=== PATIENT | female | born 1960 | race Caucasian/White ===

== ENCOUNTER 2016-08-05 10:28 | Emergency (ER) | payer OTHER, MEDICAID ==
[2016-08-05 10:42] VITALS: RESP 18
--- NOTE | 2016-08-05 10:49 | EDPHY ---
H & P Time Seen by Provider: 08/05/16 10:34 HPI/ROS: CHIEF COMPLAINT: Rash to hands HPI: The patient is a 55-year-old female who complains of irritated skin and rash to the dorsal aspect of both hands for several months. 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 She denies rash or other parts of her body. She has tried no medications for relief. She denies fever or chills. REVIEW OF SYSTEMS: Aside from elements discussed in the HPI, a comprehensive 10-point review of systems was reviewed and is negative. PMH: Psychiatric illness. SOCIAL HISTORY: Smoker. PHYSICAL EXAM: General:Patient is alert, in no acute distress. Skin: Scaly examine his rash is present to the dorsum of both hands. There is no evidence of cellulitis or discharge. Remainder of skin is normal. Extremities: Normal appearance. Full range of motion. Neuro: Oriented x3. Normal motor function. Normal sensory function. Odd affect. Smoking Status: Current every day smoker Constitutional: Initial Vital Signs Temperature (C) 36.6 C 08/05/16 10:41 Heart Rate 75 08/05/16 10:41 Respiratory Rate 18 08/05/16 10:41 Blood Pressure 155/62 H 08/05/16 10:41 O2 Sat (%) 97 08/05/16 10:41 O2 Delivery Mode Room Air Allergies/Adverse Reactions: ziprasidone HCl [From Geodon] Allergy (Severe, Verified 05/19/14 11:50) ziprasidone mesylate [From Geodon] Allergy (Severe, Verified 05/19/14 11:50) Sulfa (Sulfonamide Antibiotics) Allergy (Intermediate, Verified 05/19/14 11:50) Home Medications: Medication Instructions Recorded Topiramate [Topamax 25MG (RX)] 50 mg PO DAILY 05/18/12 Clonidine 05/19/14 Naltrexone HCl 05/19/14 TRIFLUOPERAZINE HCL 05/19/14 Betamethasone Dipropionate 1 jac TP BID 28 Days 08/05/16 MDM/Departure - [facility] ED Course/Re-evaluation: This patient presents with either contact dermatitis or more likely eczema. I have prescribed a steroid cream and advised her to return if symptoms do not improve. I see no sign of acute systemic illness. - Depart Disposition: Home, Routine, Self-Care Clinical Impression: Eczema Condition: Good Instructions: Contact Dermatitis (ED), Eczema (ED) Additional Instructions: Use steroid cream as prescribed. If you cannot find this medication, you can try using [id number] hydrocortisone cream as directed. Return to the ED if symptoms do not improve after two weeks. Avoid contact with chemicals or gloves. Prescriptions: Betamethasone Dipropionate 1 jac TP BID 28 Days Referrals: Narda Hahn MD [Primary Care Provider] - As per Instructions
[2016-08-05 10:59] VITALS: BP 148/64; PULSE 76; TEMP 98.1; O2SAT 96
== END 2016-08-05 10:58 | disposition home or self-care (01) ==
LOC: CED 10:28
DX: L30.9 Dermatitis, unspecified (principal); F17.200 Nicotine dependence, unspecified, uncomplicated

== ENCOUNTER 2016-08-11 04:56 | Emergency (ER) | payer OTHER, MEDICAID ==
--- NOTE | 2016-08-11 05:49 | EDPHY ---
H & P Stated Complaint: raised rash/bumps on arms x 3 days s/p Heps A/B vaccines Time Seen by Provider: 08/11/16 04:58 HPI/ROS: This 55-year-old female with past medical history of acute hepatitis, schizoaffective disorder/bipolar disorder and recent visit for contact dermatitis on her hands presents to the emergency department today for c/o a rash on both arms. She used the betamethasone cream she was prescribed (the whole 15gm tube) on her hands and they are starting to get better but she woke up this morning with the rash extending up both arms. She states it is not pruritic. The rash on her hands was thought to be due to her wearing a pair of previously unused hair coloring gloves while cleaning her house a few days ago. She also wonders if it could be due to recent Hepatitis vaccine. She also has been using a shampoo to help combat alopecia although she has been using this for quite some time. No new medications or foods. No increased sunlight exposure. She denies trouble breathing or swallowing but admits to an uneasiness in her mid chest but states this is anxiety. She took Benadryl yesterday without much change in symptoms. She has not seen her primary care provider recently and has not had labs in "a couple of years". ROS: dry mouth, increased thirst, chest uneasiness, anxiety; Denies headache, dizziness, trouble swallowing, shortness of breath, abdominal pain, diarrhea or dysuria. Source: Patient Exam Limitations: No limitations - Personal History LMP (Females 10-55): Post Menopausal Current Tetanus Diphtheria and Acellular Pertussis (TDAP): Yes Tetanus Vaccine Date: unsure - Medical/Surgical History PMH: PMH: Acute hepatitis ETOH vs viral (ETOH thought most likely), eczema, DVT (no PE per pt), Schizoaffective vs Bipolar Denies HTN, COPD, Asthma PSH: BTL, T&A FH: Father unknown; Mother Bipolar Meds: Naltrexone 25mg at HS; Clonidine 0.1mg during the day, 0.2mg at HS; Trifluoperazine 20mg at HS; Topiramate ?mg QID Hx Asthma: Yes Hx Chronic Respiratory Disease: Yes Hx Diabetes: No Hx Cardiac Disease: No Hx Renal Disease: No Hx Cirrhosis: No Hx Alcoholism: Yes Hx HIV/AIDS: No Hx Splenectomy or Spleen Trauma: No Other PMH: SCHIZOAFFECTIVE, HTN, COPD, ASTHMA - Family History Significant Family History: Other (Mother Bipolar) - Social History Smoking Status: Current every day smoker Tobacco Use: Cigarettes (4 cig/day) Alcohol Use: Other ("I quit yesterday") Drug Use: Other (remote h/o intranasal cocaine; occasional edible marijuana) - Physical Exam Exam: Gen: A/O x 3; occasional twitching in hands; very anxious Skin: macular papular vs urticarial rash bilateral arms up to shoulders; cracked peeling skin between fingers and palms of hands; no pustules; no rash on face, neck, torso or legs HEENT: NC/AT no alopecia; PERRLA, EOMI, oropharynx with mild glossitis, dry mucosa; airway patent; uvula midline Neck: supple, nontender Cardiac: RRR, no M/G/R; normal peripheral perfusion Pulmonary: CTAB, no R/R/W Abdomen: protuberant, soft, mild epigastric discomfort to palpation Extremties: no C/C/E Neuro: nonfocal, moves all extremities well; occasional nervous twitch in hands Constitutional: Initial Vital Signs Temperature (C) 98.2 F 08/11/16 05:05 Heart Rate 86 08/11/16 05:05 Respiratory Rate 16 08/11/16 05:05 Blood Pressure 146/98 H 08/11/16 05:05 O2 Sat (%) 95 08/11/16 05:05 O2 Delivery Mode Room Air Allergies/Adverse Reactions: ziprasidone HCl [From Geodon] Allergy (Severe, Verified 08/11/16 05:02) ziprasidone mesylate [From Geodon] Allergy (Severe, Verified 08/11/16 05:02) Sulfa (Sulfonamide Antibiotics) Allergy (Intermediate, Verified 08/11/16 05:02) Home Medications: Medication Instructions Recorded Topiramate [Topamax 25MG (RX)] 50 mg PO DAILY 05/18/12 Clonidine 05/19/14 Naltrexone HCl 05/19/14 TRIFLUOPERAZINE HCL 05/19/14 Betamethasone Dipropionate 1 jac TP BID 28 Days 08/05/16 Betamethasone Dipropionate 1 jac TP BID #1 cream..g. 08/11/16 Medical Decision Making - Diagnostics EKG Interpretation: Declined EKG ED Course/Re-evaluation: The patient was seen and examined. VS reviewed. No definitive cause for rash identified. Declined EKG. CBC, Chem wnl. Declined Prednisone ("my doctor told me I shouldn't take it. I became sensitive to it." Instructed on use of topical steroid cream that only a thin layer was necessary and only on the worst patches. Rx for refill on Betamethasone cream. Patient to follow up with PCP and given Derm referral. To return to the ER if any further problems or concerns. - Data Points Laboratory Results: Laboratory Results 08/11/16 06:17 08/11/16 06:17 Medications Given: Discontinued Medications Famotidine (Pepcid) 20 mg PO EDNOW ONE Stop: 08/11/16 06:17 Last Admin: 08/11/16 06:24 Dose: 20 mg Prednisone (Prednisone) 40 mg PO EDNOW ONE Stop: 08/11/16 06:17 Last Admin: 08/11/16 06:24 Dose: Not Given Departure - Departure Disposition: Home, Routine, Self-Care Clinical Impression: Rash Condition: Fair Instructions: Acute Rash (ED) Additional Instructions: Call today to arrange follow up with your primary care provider this week. Referrals: Cosmo To MD [Medical Doctor] - 5-7 days, call for appt. (Call this week to arrange Dermatology follow up.) Prescriptions: Betamethasone Dipropionate 1 jac TP BID #1 cream..g.
[2016-08-11] MEDS ORDERED: predniSONE 20 MG TAB PO ONE (06:16)
[2016-08-11] MEDS ORDERED: FAMOTIDINE 20 MG TAB PO ONE (06:16)
[2016-08-11 06:28] LABS: % IMMATURE GRANULYOCYTES 0.3 % (0.0-1.1); ABSOLUTE IMMATURE GRANULOCYTES 0.02 10^3/uL (0.00-0.10); ADD DIFF? NO; ADD MORPH? NO; ADD SCAN? NO; ATYPICAL LYMPHOCYTE FLAG 10 (0-99); FRAGMENT RBC FLAG 0 (0-99); HEMATOCRIT 44.4 % (38.0-47.0); HEMOGLOBIN 15.3 g/dL (12.6-16.3); LEFT SHIFT FLG 0 (0-99); LIPEMIA HEMOLYSIS FLAG 90 (0-99); MEAN CELL HEMOGLOBIN CONCENTR. 34.5 g/dL (32.4-36.7); MEAN CELL VOLUME 92.9 fL (81.5-99.8); MEAN PLATELET VOLUME 9.2 fL (8.7-11.7); PLATELET CLUMPS FLAG 0 (0-99); PLATELET COUNT 289 10^3/uL (150-400); RED BLOOD CELL COUNT 4.78 10^6/uL (4.18-5.33); RED CELL DISTRIBUTION WIDTH 13.4 % (11.5-15.2)
[2016-08-11 06:44] VITALS: BP 135/86; PULSE 78; RESP 18; TEMP 98.6; O2SAT 96
[2016-08-11 06:44] LABS: ALANINE AMINOTRANSFERASE 33 IU/L (9-52); ALBUMIN 4.4 g/dL (3.5-5.0); ALKALINE PHOSPHATASE 146 IU/L (38-126); ANION GAP 16 mEq/L (8-16); ASPARTATE AMINOTRANSFERASE 25 IU/L (14-46); BILIRUBIN,TOTAL 0.4 mg/dL (0.1-1.4); BILIRUBIN-CONJUGATED 0.3 mg/dL (0.0-0.5); BILIRUBIN-UNCONJUGATED 0.1 mg/dL (0.0-1.1); CALCIUM 9.7 mg/dL (8.5-10.4); CARBON DIOXIDE 22 mEq/l (22-31); CHLORIDE 108 mEq/L (97-110); CREATININE 0.7 mg/dL (0.6-1.0); GLOMERULAR FILTRATION RATE > 60; GLUCOSE 97 mg/dL (70-100); POTASSIUM 3.8 mEq/L (3.5-5.2); SODIUM 146 mEq/L (134-144); TOTAL PROTEIN 7.5 g/dL (6.3-8.2)
== END 2016-08-11 06:50 | disposition home or self-care (01) ==
LOC: CED 04:56
DX: R21 Rash and other nonspecific skin eruption (principal); J44.9 Chronic obstructive pulmonary disease, unspecified; I10 Essential (primary) hypertension; F17.210 Nicotine dependence, cigarettes, uncomplicated
CPT/HCPCS: 80048-PO; 80076-PO; 83690-PO; 85025-PO

== ENCOUNTER 2017-06-05 11:18 | Emergency (ER) | payer OTHER, MEDICAID ==
--- NOTE | 2017-06-05 11:36 | EDPHY ---
H & P Stated Complaint: R ankle pain after mechanical fall yesterday. Time Seen by Provider: 06/05/17 11:23 HPI/ROS: Chief Complaint: Right ankle pain HPI: 56-year-old woman complaining of right lateral ankle pain after she twisted it yesterday afternoon while gardening. Patient has been walking on it. No prior ankle injuries. No numbness or tingling. No significant swelling. ROS: 10 point Review of Systems is negative except as noted in the HPI. PMH: Schizophrenia Social History: Positive smoking, no alcohol, no recreational drug use Family History: non-contributory Physical Exam: General: Awake, alert, no acute distress Right leg: Right knee: Nontender, full range of from back pain Right ankle: She has no medial or lateral malleolar tenderness. She has tenderness at the anterior talofibular ligament reproducing her presenting complaint. There is no edema. There is no erythema. Right foot: No bony tenderness. Sensations intact. Normal perfusion, normal DP pulses. Skin: No rash - Personal History Current Tetanus/Diphtheria Vaccine: Unsure Current Tetanus Diphtheria and Acellular Pertussis (TDAP): Unsure Tetanus Vaccine Date: unsure - Medical/Surgical History Hx Asthma: Yes Hx Chronic Respiratory Disease: Yes Hx Diabetes: No Hx Cardiac Disease: No Hx Renal Disease: No Hx Cirrhosis: No Hx Alcoholism: Yes Hx HIV/AIDS: No Hx Splenectomy or Spleen Trauma: No Other PMH: SCHIZOAFFECTIVE, HTN, COPD, ASTHMA - Social History Smoking Status: Current every day smoker Constitutional: Initial Vital Signs Temperature (C) 36.6 C 06/05/17 11:23 Heart Rate 107 H 06/05/17 11:23 Respiratory Rate 18 06/05/17 11:23 Blood Pressure 173/98 H 06/05/17 11:23 O2 Sat (%) 90 L 06/05/17 11:23 O2 Delivery Mode Room Air Allergies/Adverse Reactions: Sulfa (Sulfonamide Antibiotics) Allergy (Verified 06/05/17 11:27) Pt reports vomiting ziprasidone HCl [From Geodon] Allergy (Verified 06/05/17 11:27) Pt unsure of reaction ziprasidone mesylate [From Geodon] Allergy (Verified 06/05/17 11:27) Pt unsure of reaction Home Medications: Medication Instructions Recorded TRIFLUOPERAZINE HCL 05/19/14 INVEGA 06/05/17 Medical Decision Making ED Course/Re-evaluation: 56-year-old with symptoms of an ankle sprain. There is no bony tenderness. There is no significant swelling. She is ambulating on it without difficulty. She has been placed in a Velcro stirrup splint and referred for outpatient follow-up with primary. No indications for x-rays at this time. Departure - Departure Disposition: Home, Routine, Self-Care Clinical Impression: Ankle sprain Condition: Good Instructions: Ankle Sprain (ED), Ankle Stirrup Splint (ED), R.I.C.E. Treatment (ED) Additional Instructions: Alternate acetaminophen (1000 mg) with ibuprofen (400 mg) every 4 hours as needed for pain. Follow up with your primary care physician in about a week for recheck if symptoms are not improving. Referrals: Narda Hahn MD [Primary Care Provider] - As per Instructions
[2017-06-05 11:46] VITALS: BP 155/91
== END 2017-06-05 11:45 | disposition home or self-care (01) ==
LOC: SUPCPDRO 11:18 → CED 11:18
DX: S99.911A Unspecified injury of right ankle, initial encounter (principal); I10 Essential (primary) hypertension; J44.9 Chronic obstructive pulmonary disease, unspecified; F17.200 Nicotine dependence, unspecified, uncomplicated; X50.9XXA Other and unspecified overexertion or strenuous movements or postures, initial encounter
CPT/HCPCS: 99282; L4350

== ENCOUNTER → 2018-07-20 | Outpatient (CLI) | payer OTHER, MEDICAID | LOC: FIMAGING 09:53 | PROVIDERS: ATTEND Family Medicine | DX: Z12.31 Encounter for screening mammogram for malignant neoplasm of breast (principal) ==